=== PATIENT | female | born 1985 | race Caucasian/White ===

== ENCOUNTER → 2021-02-17 15:24 | Outpatient (CLI) | payer BC, SELFPAY ==
--- NOTE | ~2021-02-17 | XR_ITS ---
EXAMINATION: XR shoulder RT min 2V DATE: 02/17/2021 15:39 INDICATION: Nontraumatic right shoulder pain TECHNIQUE: AP internally and externally rotated, AP oblique externally rotated and axillary views of the right shoulder were obtained. COMPARISON: None FINDINGS: Normal alignment. No fracture. Glenohumeral joint is normal. Acromioclavicular joint is normal. Smal l ovoid ossific density projecting along the posterior rim of the glenoid. Soft tissues are unremarka ble. Visualized portions of the right lung are clear. IMPRESSION: Small heterotopic ossicle along the posterior rim of the glenoid potentially within the labrum. Other bailey unremarkable right shoulder radiographs. Reviewed, dictated and finalized at location A. IMPRESSION: Small heterotopic ossicle along the posterior rim of the glenoid potentially wi thin the labrum. Otherwise unremarkable right shoulder radiographs.
== END ==
PROVIDERS: PCP Family Medicine; Visit Provider Nurse Practitioner Family
DX: M25.511 Pain in right shoulder (principal)
CPT/HCPCS: 73030

== ENCOUNTER 2021-03-08 08:00 | Outpatient (CLI) | payer BC, SELFPAY ==
--- NOTE | 2021-03-27 20:50 | WPDHOMESLEEP ---
Sleep Study - Home Unattended Date of Study: 03/08/21 <Sapphire Mcfarlane DO - Last Filed: 03/27/21 21:19> Ordering Provider: Chago Galvan MD <Sapphire Mcfarlane DO - Last Filed: 03/27/21 21:19> Interpreting Provider: Sapphire Mcfarlane DO <Sapphire Mcfarlane DO - Last Filed: 03/27/21 21:19> Home Sleep Study Type: Apnea Link Air <Sapphire Mcfarlane DO - Last Filed: 03/27/21 21:19> Height: 1.75 m <Sapphire Mcfarlane DO - Last Filed: 03/27/21 21:19> Weight: 68.039 kg <Sapphire Mcfarlane DO - Last Filed: 03/27/21 21:19> Body Mass Index: 22.1 <Sapphire Mcfarlane DO - Last Filed: 03/27/21 21:19> Neck Circumference (inches): 12.5 <Sapphire Mcfarlane DO - Last Filed: 03/27/21 21:19> [place]: 8 <Sapphire Mcfarlane DO - Last Filed: 03/27/21 21:19> Reason for Sleep Study Falling asleep very early in the night and then awakening too early and difficulty falling back asleep. 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 She will usually wake up around 2:23 a.m. to urinate and then has difficulty falling back asleep. The patient states that this happens almost every night and has been going on for greater than 2 years. The patient rarely awakens from sleep short of breath. She occasionally awakens at night coughing. She rarely snores loud enough that others complain. She occasionally has trouble sleeping when she has a cold. She rarely wakes up gasping for air throughout the night. He rarely has breathing problems at night observed by others. She occasionally sweats excessively at night. She rarely notices heart palpitations or irregular heartbeats during the night. She denies falling asleep during the day. She frequently falls asleep while watching television, regardless if it is an exciting show or not. She denies falling asleep while driving. She denies sleep paralysis, cataplexy and hypnagogic / hypnopompic hallucinations. She denies having trouble at work due to sleepiness. She rarely has nightmares. She occasionally remembers her dreams. She occasionally has thoughts racing through her mind. She rarely feels sad or depressed. She occasionally feels anxious. She occasionally notices parts of her body jerk. She occasionally kicks through the night. She occasionally has crawling and aching feelings in her legs but rarely has leg pain during the night. She really grinds her teeth during sleep and never awakens with jaw pain in the morning. She is rarely bothered by pain during the day and rarely awakened by pain during the night. She rarely wakes up feeling stiff in the morning with sore and achy muscles. She goes to bed at 10:00 p.m. on weekdays and between 10 and 11:00 p.m. on the weekends. It takes her 10 minutes to fall asleep. She wakes up between 1 and 2 times per night to use the restroom. When she awakens, It takes her 10-15 minutes to fall back asleep. She awakens between 530 and 6:00 a.m. on the weekdays and between 6:30 a.m. and 7:00 a.m. on the weekends. She typically gets between 6 and 9 hours of sleep per night. She will stay in bed for 5-10 minutes after waking up in the morning. She currently lives with her and 4-year-old child. Her work shift do not change. She denies consuming any caffeinated beverages within 2 hours of bedtime. She denies any physical exercise before bedtime. She does watch television before falling asleep. She does not take any naps in the afternoon or the evening. She drinks 1-2 caffeinated beverages per day. She drinks 1-2 alcoholic beverages per day. She denies tobacco and recreational drug use. <Sapphire Mcfarlane, DO - Last Filed: 03/27/21 21:19> [facility] Past Medical History Medical History: Medical History ([facility]i
[2021-03-27 21:07] VITALS: BMI 22.1
== END 2021-03-09 10:45 | disposition home or self-care (01) ==
LOC: ANHCSM 08:01
PROVIDERS: PCP Family Medicine; Visit Provider Family Medicine
DX: G47.10 Hypersomnia, unspecified (principal); R06.83 Snoring; G47.9 Sleep disorder, unspecified
CPT/HCPCS: 95806